=== PATIENT | male | born 1955 | race Caucasian/White ===

== ENCOUNTER → 2018-03-24 | Outpatient (CLI) | payer OTHER ==
[~2018-03-24] MED LIST: ADULT LOW DOSE81 MG PO; CYMBALTA60 MG PO; DIAZEPAM 5 MG5 MG PO; FENTANYL PATCH75 MCG; GLUCOPHAGE500 MG PO; LISINOPRIL10 MG PO; NEURONTIN 400400 M1 PO; OXYBUTYNIN 5 MG5 M1 PO; OXYCODONE-APAP1 EAC4 PO; PRILOSEC 20 MG20 MG PO; PROSCAR 5MG TABL5 MG PO; SIMVASTATIN40 MG PO; STOOL SOFTENER240 MG PO; TAMSULOSIN HCL0.4 M1 PO; VICODIN 5-3001 EACH
== END ==
LOC: M.ULTRA 10:30
DX: M77.32 Calcaneal spur, left foot (principal); M77.31 Calcaneal spur, right foot; M25.571 Pain in right ankle and joints of right foot; M79.89 Other specified soft tissue disorders

== ENCOUNTER → 2019-04-16 | Outpatient (CLI) | payer OTHER ==
[2019-04-16 08:51] LABS: ABSOLUTE EOSINOPHILS 0.2 thou/uL (0.0-0.7); ABSOLUTE LYMPHOCYTES 1.8 thou/uL (0.8-5.3); ABSOLUTE MONOCYTES 0.3 thou/uL (0.0-1.2); ABSOLUTE NEUTROPHILS 2.9 thou/uL (1.6-8.1); BASOPHILS 0.9 %; EOSINOPHILS 4.3 %; HEMATOCRIT 38.6 % (42.0-52.0); HEMOGLOBIN 13.2 gm/dL (14.0-18.0); LYMPHOCYTES 33.8 %; MCH 29.2 pg (26.0-34.0); MCHC 34.3 g/dL (28.0-37.0); MCV 85.2 fL (80.0-100.0); MONOCYTES 5.7 %; MPV 8.7 fl. (7.2-11.1); NUCLEATED RBCS 0 /100WBC; PLATELET COUNT* 186 thou/uL (150-400); POLYS 55.3 %; RBC 4.53 mil/uL (4.50-6.00); RDW-CV 16.1 % (10.5-14.5); WBC 5.3 thou/uL (4.0-11.0)
[2019-04-16 09:07] LABS: ALBUMIN 3.7 g/dL (3.4-5.0); CALCIUM 8.7 mg/dL (8.5-10.1); CREATININE 0.8 mg/dL (0.6-1.3); POTASSIUM 4.3 mmol/L (3.5-5.1); TOTAL BILIRUBIN 0.7 mg/dL (<0.1-1.0)
[2019-04-18 07:06] LABS: HEPATITIS B SURFACE AG Negative (Negative); HIV-1/HIV-2 ANTIBODY Non Reactive (Non Reactive)
== END ==
LOC: M.LAB 08:24
PROVIDERS: Dermatology
DX: L40.8 Other psoriasis (principal)

== ENCOUNTER → 2019-04-30 | Outpatient (CLI) | payer OTHER | LOC: M.ULTRA 08:43 | DX: R22.31 Localized swelling, mass and lump, right upper limb (principal); M79.89 Other specified soft tissue disorders; Z88.7 Allergy status to serum and vaccine ==

== ENCOUNTER → 2019-05-08 | Outpatient (CLI) | payer OTHER | LOC: M.CT 12:15 | DX: S92.351A Displaced fracture of fifth metatarsal bone, right foot, initial encounter for closed fracture (principal); E11.40 Type 2 diabetes mellitus with diabetic neuropathy, unspecified; L03.115 Cellulitis of right lower limb; L02.611 Cutaneous abscess of right foot; X58.XXXA Exposure to other specified factors, initial encounter; Y93.89 Activity, other specified; Y92.89 Other specified places as the place of occurrence of the external cause; Y99.8 Other external cause status ==

== ENCOUNTER → 2020-01-17 | Outpatient (CLI) | payer OTHER ==
[2020-01-17 13:00] LABS: ABSOLUTE BASOPHILS 0.1 thou/uL (0.0-0.2); ABSOLUTE EOSINOPHILS 0.3 thou/uL (0.0-0.7); ABSOLUTE LYMPHOCYTES 1.9 thou/uL (0.8-5.3); ABSOLUTE MONOCYTES 0.4 thou/uL (0.0-1.2); ABSOLUTE NEUTROPHILS 3.2 thou/uL (1.6-8.1); BASOPHILS 1.4 %; EOSINOPHILS 4.7 %; HEMATOCRIT 39.6 % (42.0-52.0); HEMOGLOBIN 13.7 gm/dL (14.0-18.0); LYMPHOCYTES 32.5 %; MCH 29.5 pg (26.0-34.0); MCHC 34.6 g/dL (28.0-37.0); MCV 85.4 fL (80.0-100.0); MONOCYTES 6.1 %; MPV 8.5 fl. (7.2-11.1); NUCLEATED RBCS 0 /100WBC; PLATELET COUNT* 200 thou/uL (150-400); POLYS 55.3 %; RBC 4.64 mil/uL (4.50-6.00); RDW-CV 15.5 % (10.5-14.5); WBC 5.8 thou/uL (4.0-11.0)
[2020-01-17 13:03] LABS: CALCIUM 8.3 mg/dL (8.5-10.1); CREATININE 0.8 mg/dL (0.6-1.3)
--- NOTE | 2020-01-17 14:24 | EKG ---
[place] [address] ELECTROCARDIOGRAM REPORT Name: ALEJANDRO RECINOS Room: [facility]#: [id number] Admission: 01/17/20 Attend Phys: Miguelito Alicia, Discharge: Date of : 55 Date of Service: 01/17/20 1239 Report #: [id number] THIS REPORT FOR: //name// [facility] Test Date: 2020-01-17 Test Time: 12:39:04 Pat Name: ALEJANDRO RECINOS Department: Room: Gender: Operator Automated Process: : 1955 Requested By: Miguelito Alicia Order Number: [id number] Reading MD: Bon Blair Measurements Intervals [place] Rate: 93 P: SD: QRS: -39 QRSD: 88 T: 51 QT: 340 QTc: 423 Interpretive Statements Atrial flutter Consider RVH or posterior infarct Inferior infarct, old No previous ECG available for comparison Electronically Signed On 01-17-2020 14:23:07 [employer] by Bon Blair [email or web address] <ELECTRONICALLY SIGNED> By: Bon Blair MD, [facility] 01/17/20 1423 1239 1239 Bon Blair MD, FACC /EPI
== END ==
LOC: M.CRD 12:14
PROVIDERS: Urology
DX: Z01.818 Encounter for other preprocedural examination (principal); I48.92 Unspecified atrial flutter

== ENCOUNTER → 2020-05-05 | Outpatient (CLI) | payer OTHER | LOC: M.ULTRA 09:30 | DX: M79.89 Other specified soft tissue disorders (principal); M79.661 Pain in right lower leg ==

== ENCOUNTER 2020-06-04 08:01 | Emergency (ER) | payer OTHER ==
[~2020-06-04] VITALS: Ht 190.5 cm; Wt 120.2 kg
[~2020-06-04 08:01] MED LIST changes: +HYDROCODON-ACE1 EAC7 PO; -VICODIN 5-3001 EACH
[2020-06-04] MEDS ORDERED: TRAZODONE HCL50 MG PO (08:17)
[2020-06-04 08:26] LABS: URINE BILIRUBIN NEGATIVE (Negative); URINE BLOOD NEGATIVE (Negative); URINE CLARITY CLEAR; URINE COLOR YELLOW; URINE GLUCOSE-RANDOM NEGATIVE (Negative); URINE KETONES NEGATIVE (Negative); URINE LEUKOCYTES-REFLEX NEGATIVE (Negative); URINE NITRITE-REFLEX NEGATIVE (Negative); URINE PROTEIN TRACE (Negative); URINE SPECIFIC GRAVITY 1.015 (1.005-1.030)
[2020-06-04 08:40] LABS: ABSOLUTE BASOPHILS 0.1 thou/uL (0.0-0.2); ABSOLUTE MONOCYTES 0.4 thou/uL (0.0-1.2); ABSOLUTE NEUTROPHILS 6.7 thou/uL (1.6-8.1); BASOPHILS 0.6 %; EOSINOPHILS 0.4 %; HEMOGLOBIN 14.3 gm/dL (14.0-18.0); LYMPHOCYTES 12.7 %; MCH 30.2 pg (26.0-34.0); MCHC 34.9 g/dL (28.0-37.0); MCV 86.4 fL (80.0-100.0); MONOCYTES 4.8 %; MPV 8.3 fl. (7.2-11.1); NUCLEATED RBCS 0 /100WBC; PLATELET COUNT* 163 thou/uL (150-400); POLYS 81.5 %; RBC 4.75 mil/uL (4.50-6.00); RDW-CV 16.4 % (10.5-14.5); WBC 8.2 thou/uL (4.0-11.0)
[2020-06-04 08:43] LABS: CALCIUM 8.8 mg/dL (8.5-10.1); CREATININE 1.2 mg/dL (0.6-1.3); POTASSIUM 4.1 mmol/L (3.5-5.1)
[2020-06-04 08:47] LABS: TOTAL BILIRUBIN 0.7 mg/dL (<0.1-1.0); TOTAL PROTEIN 7.3 g/dL (6.4-8.2)
[2020-06-04] MEDS ORDERED: PERCOCET 5-3251 EACH PO (09:54)
[2020-06-04] MEDS ORDERED: FLOMAX0.4 MG PO (09:54)
[2020-06-04] MEDS ORDERED: CIPROFLOXACIN500 M1 PO (09:54)
[2020-06-04 10:14] VITALS: BP 118/85
== END 2020-06-04 10:15 | disposition home or self-care (01) ==
LOC: M.ERS 08:01
PROVIDERS: Family Medicine
DX: N20.0 Calculus of kidney (principal); I10 Essential (primary) hypertension; E78.5 Hyperlipidemia, unspecified; E11.41 Type 2 diabetes mellitus with diabetic mononeuropathy; K21.9 Gastro-esophageal reflux disease without esophagitis; K58.9 Irritable bowel syndrome, unspecified; F17.210 Nicotine dependence, cigarettes, uncomplicated; Z90.49 Acquired absence of other specified parts of digestive tract